=== PATIENT | male | born 1995 | race Two or more races ===

== ENCOUNTER 2022-10-05 21:21 | Emergency (ER) | payer SELFPAY ==
[~2022-10-05] VITALS: Ht 185.4 cm; Wt 86.2 kg
[2022-10-05] MEDS ORDERED: LIDOCAINE HCL 2% 20 ML VIAL ONE (21:33)
--- NOTE | 2022-10-05 21:43 | NUR ---
Ambulated to room #1B with c/o left 5th finger pain, patient is alert oriented x4 no s/s of any distress noted, informed of plac of care, was at bedside for exam.
[2022-10-05] MEDS ORDERED: SULFAMETH/TRIMETH 800/160 MG TABLET PO ONE (21:45)
[2022-10-05] MEDS ORDERED: LIDOCAINE HCL 2% 20 ML VIAL IJ ONE (21:45)
[2022-10-05] MEDS ORDERED: SULF1TAB48 PO (22:04)
[2022-10-05] MEDS ORDERED: HYDR-3972 PO (22:04)
[2022-10-05] MEDS ORDERED: SULFAMETH/TRIMETH 800/160 MG TABLET ONE (22:14)
--- NOTE | 2022-10-05 22:41 | NUR ---
wound care done drsg. applied as per order. ACI given with RX, states understanding and remains stable for discharge home.
[2022-10-05 22:43] VITALS: BP 151/99
== END 2022-10-05 22:44 | disposition home or self-care (01) ==
LOC: ER 21:21
DX: L03.012 Cellulitis of left finger (principal); F31.9 Bipolar disorder, unspecified; F17.210 Nicotine dependence, cigarettes, uncomplicated; R03.0 Elevated blood-pressure reading, without diagnosis of hypertension; F90.9 Attention-deficit hyperactivity disorder, unspecified type
CPT/HCPCS: 99283; 10060; 99406; J3490; A4663